=== PATIENT | male | born 1985 | race Caucasian/White ===

== ENCOUNTER 2024-10-04 09:49 | Day surgery (SDC) | payer OTHER ==
[~2024-10-04 09:49] MED LIST: Sodium Chloride 0.9% 10 ML Syringe FLUSH PRN; Sodium Chloride 0.9% 10 ML Syringe FLUSH SCH
[2024-10-04] MEDS: Lactated Ringers 1,000 ML IV SCH (10:15)
[2024-10-04] MEDS ORDERED: Dexamethasone 4 MG/ML 5 ML MDV ONE (10:47)
[2024-10-04] MEDS ORDERED: Ondansetron 4 MG/2 ML SDV ONE (10:47)
[2024-10-04] MEDS ORDERED: Midazolam 1 MG/ML 2 ML SDV ONE (10:47)
[2024-10-04] MEDS ORDERED: Lidocaine 1% 4 ML ONE (10:47)
[2024-10-04] MEDS ORDERED: dexmedeTOMIDine HCl 200 MCG/2 ML SDV ONE (10:47)
[2024-10-04] MEDS ORDERED: fentaNYL 250 MCG/5 ML SDV ONE (10:47)
[2024-10-04] MEDS ORDERED: Rocuronium 50 MG/5 ML Vial ONE ×2 (10:47→11:33)
[2024-10-04] MEDS ORDERED: Lactated Ringers 1,000 ML ONE (10:47)
[2024-10-04] MEDS ORDERED: ceFAZolin 2 GM Vial ONE (10:47)
[2024-10-04] MEDS ORDERED: Propofol 200 MG/20 ML SDV ONE (10:47)
[2024-10-04] MEDS ORDERED: Phenylephrine 1% 10 MG/ML SDV ONE (11:18)
[2024-10-04] MEDS: EPINEPHrine 1 MG/ML SDV ONE (11:19)
[2024-10-04] MEDS: Bupivacaine 0.5% 30 ML SDV ONE (11:19)
[2024-10-04] MEDS ORDERED: HYDROmorphone 0.5 MG/0.5 ML Syringe IVPUSH PRN (11:30)
[2024-10-04] MEDS ORDERED: Ondansetron 4 MG/2 ML SDV IVPUSH PRN (11:30)
[2024-10-04] MEDS ORDERED: fentaNYL 100 MCG/2 ML SDV IVPUSH PRN (11:30)
[2024-10-04] MEDS ORDERED: fentaNYL 100 MCG/2 ML SDV ONE (11:39)
[2024-10-04] MEDS ORDERED: Ketorolac 30 MG/ML SDV ONE (11:52)
[2024-10-04] MEDS ORDERED: Sugammadex Sodium 200 MG/2 ML VIAL IV ONE (11:54)
[2024-10-04] MEDS ORDERED: oxyCODONE 5 MG Tab PO PRN (12:44)
== END 2024-10-04 14:05 | disposition home or self-care (01) ==
LOC: JD.SDS 09:49
PROVIDERS: ATTEND Surgery
DX: K80.10 Calculus of gallbladder with chronic cholecystitis without obstruction (principal); K21.9 Gastro-esophageal reflux disease without esophagitis; I10 Essential (primary) hypertension; F17.200 Nicotine dependence, unspecified, uncomplicated; Z79.899 Other long term (current) drug therapy
CPT/HCPCS: 47562; J0171; J0665; J0690; J1100; J1885; J2250; J2371; J2405; J2704; J3010; J3490; J7120; 00790